=== PATIENT | male | born 1995 | race Caucasian/White ===

== ENCOUNTER 2019-07-04 22:14 | Emergency (ER) | payer BC, OTHER ==
[2019-07-04 22:20] VITALS: BP 144/88; PULSE 98; RESP 16; TEMP 97.4
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
--- NOTE | 2019-07-04 23:41 | XR ---
EXAMINATION TYPE: XR forearm LT DATE OF EXAM: 07/04/2019 COMPARISON: NONE HISTORY: Laceration TECHNIQUE: 2 views FINDINGS: Radius and ulna appear intact. I see no fracture nor dislocation. Elbow joint is intact. IMPRESSION: Negative left forearm exam. No sign of a foreign body.
[2019-07-04] MEDS ORDERED: LIDOCAINE 1% INJ 10MG/ML (20 ML MDV) SQ ONE (23:58)
== END 2019-07-05 00:34 | disposition home or self-care (01) ==
LOC: EC 22:14
DX: S51.812A Laceration without foreign body of left forearm, initial encounter (principal); S60.511A Abrasion of right hand, initial encounter; W25.XXXA Contact with sharp glass, initial encounter; V48.5XXA Car driver injured in noncollision transport accident in traffic accident, initial encounter; Y93.89 Activity, other specified; Y92.410 Unspecified street and highway as the place of occurrence of the external cause; Z53.29 Procedure and treatment not carried out because of patient's decision for other reasons
CPT/HCPCS: 73090; 99283; 12002; J2001

== ENCOUNTER 2019-08-17 05:25 | Emergency (ER) | payer BC, OTHER ==
[2019-08-17] MEDS ORDERED: SODIUM CHLORIDE 0.9% 1,000 ML IV STA (05:33)
[2019-08-17 05:41] LABS: Glucose,Whole Blood 105 mg/dL (75-99)
[2019-08-17 05:44] LABS: Basophils # (A) 0.1 k/uL (0-0.2); Basophils % (A) 1 %; Eosinophils # (A) 0.1 k/uL (0-0.7); Eosinophils % (A) 1 %; HCT 47.5 % (39.0-53.0); HGB 16.2 gm/dL (13.0-17.5); Lymphocytes # (A) 2.2 k/uL (1.0-4.8); Lymphocytes % (A) 19 %; MCH 29.3 pg (25.0-35.0); MCHC 34.2 g/dL (31.0-37.0); MCV 85.7 fL (80.0-100.0); Mean Platelet Volume 7.9; Monocytes # (A) 0.3 k/uL (0-1.0); Monocytes % (A) 3 %; Neutrophils % (A) 76 %; Platelet Count 304 k/uL (150-450); RBC 5.54 m/uL (4.30-5.90); RDW 11.7 % (11.5-15.5); WBC 11.9 k/uL (3.8-10.6)
[2019-08-17] MEDS ORDERED: MORPHINE SULFATE 4 MG/ML SYRINGE IVP STA (05:46)
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
[2019-08-17 05:51] LABS: Creatine Kinase 78 U/L (55-170)
[2019-08-17 05:53] LABS: ALT 58 U/L (4-49); AST 37 U/L (17-59); African American GFR (CKD) >90 (>60 ml/min/1.73 sqM); Albumin 4.9 g/dL (3.5-5.0); Alcohol <10 mg/dL; Alkaline Phosphatase 95 U/L (38-126); Amylase 64 U/L (30-110); Anion Gap 8 mmol/L; Blood Urea Nitrogen 17 mg/dL (9-20); Calcium 9.8 mg/dL (8.4-10.2); Carbon Dioxide 29 mmol/L (22-30); Chloride 103 mmol/L (98-107); Glucose 96 mg/dL (74-99); Non-African American GFR(CKD) >90 (>60 ml/min/1.73 sqM); Potassium 4.4 mmol/L (3.5-5.1); Sodium 140 mmol/L (137-145); Total Bilirubin 0.7 mg/dL (0.2-1.3); Total Protein 7.6 g/dL (6.3-8.2)
[2019-08-17 05:57] LABS: Partial Thromboplastin Time 21.9 sec (22.0-30.0); Prothrombin Time 10.3 sec (9.0-12.0)
[2019-08-17 06:04] LABS: Troponin I <0.012 ng/mL (0.000-0.034)
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
[2019-08-17] MEDS ORDERED: ACET/COD 300 MG/30 MG STARTER PACK 6 TAB BTL PO STA (07:26)
== END 2019-08-17 07:55 | disposition home or self-care (01) ==
LOC: EC 05:25
DX: S01.01XA Laceration without foreign body of scalp, initial encounter (principal); S10.91XA Abrasion of unspecified part of neck, initial encounter; S40.212A Abrasion of left shoulder, initial encounter; S40.811A Abrasion of right upper arm, initial encounter; S00.512A Abrasion of oral cavity, initial encounter; M25.552 Pain in left hip; V47.5XXA Car driver injured in collision with fixed or stationary object in traffic accident, initial encounter; Y92.410 Unspecified street and highway as the place of occurrence of the external cause
CPT/HCPCS: 36415; 93005; 86900; 86901; 80053; 82150; 82550; 82553; 83605; 83690; 84484; 85025; 85610; 85730; 86850; 80320; 72170; 73030; 71045; 72125; 70450; 71260; 74177; 99285; 12002; 96374; 96361; J2270; Q9967

== ENCOUNTER 2023-06-12 19:00 | Emergency (ER) | payer OTHER ==
[2023-06-12] MEDS ORDERED: TOPICAL SKIN ADHESIVE 1 EACH AMP TOPICAL ONE (19:30)
--- NOTE | 2023-06-12 19:32 | ED ---
Wound/Laceration HPI - General Source: patient Mode of arrival: ambulatory Limitations: no limitations <Catherine Faust - Last Filed: 06/12/23 19:31> - General Source: patient, RN notes reviewed Mode of arrival: ambulatory Limitations: no limitations <Ruthie Lewis - Last Filed: 06/13/23 01:02> - General Chief Complaint: Wound/Laceration Stated Complaint: facial lac-[facility] Time Seen by Provider: 06/12/23 19:32 - History of Present Illness Initial Comments: 27-year-old male presenting with chief complaint of facial laceration. Patient was at work when he tripped and fell hitting his head. No loss of consciousness or blood thinners. He has a small 1 cm laceration below the right eyebrow (Catherine Faust) 27-year-old male presents emergency department chief complaint of right facial laceration. He was at work when he tripped and fell on a bucket causing him to hit his face. He didn't lose consciousness, is not on any blood thinners, denies headache at this time. He does have a laceration to his right sided eyebrow. He denies any other injury. He is up-to-date on his tetanus vaccination. (Ruthie Lewis) - Related Data Previous Rx's Medication Instructions Recorded Ibuprofen [Motrin] 800 mg PO TID #30 tab 08/17/19 Orphenadrine [Norflex] 100 mg PO Q12H #30 tablet.er 08/17/19 Allergies Allergy/AdvReac Type Severity Reaction Status Date / Time No Known Allergies Allergy Verified 06/12/23 19:27 Review of Systems ROS Other: All systems not noted in ROS Statement are negative. <Catherine Faust - Last Filed: 06/12/23 19:31> ROS Other: All systems not noted in ROS Statement are negative. <Ruthie Lewis - Last Filed: 06/13/23 01:02> ROS Statement: Those systems with pertinent positive or pertinent negative responses have been documented in the HPI. Past Medical History Past Medical History: No Reported History History of Any Multi-Drug Resistant Organisms: None Reported Past Surgical History: Orthopedic Surgery Past Psychological History: Unable to Obtain Smoking Status: Vaper Past Alcohol Use History: Rare Past Drug Use History: Marijuana <Catherine Faust - Last Filed: 06/12/23 19:31> General Exam Limitations: no limitations <Catherine Faust - Last Filed: 06/12/23 19:31> Limitations: no limitations General appearance: alert, in no apparent distress Head exam: Present: atraumatic, normocephalic, normal inspection Eye exam: Present: normal appearance, PERRL, EOMI, other (Laceration above right eye 1cm). Absent: scleral icterus, conjunctival injection, periorbital swelling ENT exam: Present: normal exam, mucous membranes moist Neck exam: Present: normal inspection. Absent: tenderness, meningismus, lymphadenopathy Respiratory exam: Present: normal lung sounds bilaterally. Absent: respiratory distress, wheezes, rales, rhonchi, stridor Cardiovascular Exam: Present: regular rate, normal rhythm, normal heart sounds. Absent: systolic murmur, diastolic murmur, rubs, gallop, clicks <Ruthie Lewis - Last Filed: 06/13/23 01:02> - General Exam Comments Initial Comments: Visual Physical Exam Vital signs reviewed General: Well-appearing, nontoxic, no acute distress. Head: Normocephalic, small laceration below the right eyebrow Eyes: PERRLA, EOMI ENT: Airway patent Chest: Nonlabored breathing Skin: No visual rash, normal skin tone Neuro: Alert and oriented 3 Musculoskeletal: No gross abnormalities (Catherine Faust) Course Vital Signs 06/12/23 06/12/23 19:23 22:11 Temperature 98.0 F Pulse Rate 100 73 Respiratory 20 18 Rate Blood Pressure 133/82 132/80 O2 Sat by Pulse 100 99 Oximetry Medical Decision Making <Ruthie Lewis - Last Filed: 06/13/23 01:02> - Medical Decision Making Was pt. sent in by a medical professional or institution (, PA, TUB TENDER, urgent care, hospital, or jail...) When possible be specific @ -No Did you speak to anyone other than the patient for history (EMS, parent, family, police, friend...)? What history was obtained from this source @ -No Did you review nursing and triage notes (agree or disagree)? Why? @ -I reviewed and agree with nursing and triage notes Were old charts reviewed (outside hosp., previous admission, EMS record, old EKG, old radiological studies, urgent care reports/EKG's, jail records)? Report findings @ -No old charts were reviewed Differential Diagnosis (chest pain, altered mental status, abdominal pain women, abdominal pain men, vaginal bleeding, weakness, fever, dyspnea, syncope, headache, dizziness, GI bleed, back pain, seizure, CVA, palpatations, mental health, musculoskeletal)? @ -Fall, significant, laceration, fracture, abrasion, this list is not all- inclusive EKG interpreted by me (3pts min.). @ -None X-rays interpreted by me (1pt min.). @ -None done CT interpreted by me (1pt min.). @ -None done U/S interpreted by me (1pt. min.). @ -None done What testing was considered but not performed or refused? (CT, X-rays, U/S, labs)? Why? @ -None What meds were considered but not given or refused? Why? @ -None Did you discuss the management of the patient with other professionals (professionals i.e. , PA, TUB TENDER, lab, RT, psych nurse, social insurance specialist, business lawyer, teacher, professional security officer, block and case maker)? Give summary @ -No Was smoking cessation discussed for >3mins.? @ -No Was critical care preformed (if so, how long)? @ -No Were there social determinants of health that impacted care today? How? (Homelessness, low income, unemployed, alcoholism, drug addiction, transportation, low edu. Level, literacy, decrease access to med. care, residential, rehab)? @ -No Was there de-escalation of care discussed even if they declined (Discuss DNR or withdrawal of care, Hospice)? DNR status @ -No What co-morbidities impacted this encounter? (DM, HTN, Smoking, COPD, CAD, Cancer, CVA, ARF, Chemo, Hep., AIDS, mental health diagnosis, sleep apnea, morbid obesity)? @ -None Was patient admitted / discharged? Hospital course, mention meds given and route, prescriptions, significant lab abnormalities, going to OR and other pertinent info. @ -Discharged. Patient presented to the emergency department chief complaint of fall. He did not lose consciousness, denies blood thinners. He has a small 1 cm laceration above the right eye, below the right eyebrow. This wound was cleaned and exofen was applied with Steri-Strips. Patient is up-to-date on his tetanus vaccination. Patient stable at discharge. Case discussed with Dr. Purdy Undiagnosed new problem with uncertain prognosis? @ -No Drug Therapy requiring intensive monitoring for toxicity (Heparin, Nitro, Insulin, Cardizem)? @ -No Were any procedures done? @ -No Diagnosis/symptom? @ -Laceration Acute, or Chronic, or Acute on Chronic? @ -Acute Uncomplicated (without systemic symptoms) or Complicated (systemic symptoms)? @ -uncomplicated Side effects of treatment? @ -No Exacerbation, Progression, or Severe Exacerbation? @ -No Poses a threat to life or bodily function? How? (Chest pain, [place], [place], pneumonia, PE, COPD, DKA, ARF, appy, cholecystitis, CVA, Diverticulitis, Homicidal, Suicidal, threat to staff... and all critical care pts) @ -No (Ruthie Lewis) Disposition <Catherine Faust - Last Filed: 06/12/23 19:31> Is patient prescribed a controlled substance at d/c from ED?: No <Ruthie Lewis - Last Filed: 06/13/23 01:02> Clinical Impression: Laceration Disposition: HOME SELF-CARE Condition: Stable Instructions (If sedation given, give patient instructions): Skin Adhesive Care (ED) Additional Instructions: Please keep wound clean and dry. Follow up with your primary care provider. Return to the emergency department for new or worsening symptoms. Referrals: None,Stated [Primary Care Provider] - 1-2 days
[2023-06-12 19:51] VITALS: TEMP 98
[2023-06-12 22:26] VITALS: BP 132/80; PULSE 73; RESP 18
== END 2023-06-12 22:12 | disposition home or self-care (01) ==
LOC: EC 19:00
DX: S01.111A Laceration without foreign body of right eyelid and periocular area, initial encounter (principal); F17.290 Nicotine dependence, other tobacco product, uncomplicated; F12.90 Cannabis use, unspecified, uncomplicated; W01.10XA Fall on same level from slipping, tripping and stumbling with subsequent striking against unspecified object, initial encounter
CPT/HCPCS: 12011; 99282